=== PATIENT | female | born 1970 | race Caucasian/White ===

== ENCOUNTER 2021-10-03 09:14 | Day surgery (SDC) | payer OTHER ==
[~2021-10-03] VITALS: Ht 170.2 cm; Wt 129.0 kg
[~2021-10-03 09:14] MED LIST: CYCL10 PO
[2021-10-03] MEDS ORDERED: NEBI10 (10:10)
[2021-10-03] MEDS ORDERED: OLME20 (10:11)
--- NOTE | 2021-10-03 10:16 | NUR ---
10/03/21 1016 ALEJO STALLWORTH TETRACAINE PLACED AT 10:11 PLEUGETTE PLACED AT 10:13
== END 2021-10-03 11:56 | disposition home or self-care (01) ==
LOC: ORSCSDS 09:14
PROVIDERS: Ophthalmology
PROC: 08RK3JZ Replacement of Left Lens with Synthetic Substitute, Percutaneous Approach (ICD-10-PCS; principal; 2021-10-03 14:30)
DX: H25.13 Age-related nuclear cataract, bilateral (principal); I10 Essential (primary) hypertension; Z86.73 Personal history of transient ischemic attack (TIA), and cerebral infarction without residual deficits; Z79.899 Other long term (current) drug therapy; E66.01 Morbid (severe) obesity due to excess calories; Z68.41 Body mass index [BMI] 40.0-44.9, adult
CPT/HCPCS: J2001; J3301; J7040; V2632

== ENCOUNTER 2021-10-10 07:06 | Day surgery (SDC) | payer OTHER ==
[~2021-10-10] VITALS: Ht 172.7 cm; Wt 128.8 kg
[~2021-10-10 07:06] MED LIST changes: +NEBI10; +OLME20
--- NOTE | 2021-10-10 07:54 | NUR ---
10/10/21 0754 Lilliana Mercado AT 0745 PLEDGET AT 0783
== END 2021-10-10 09:06 | disposition home or self-care (01) ==
LOC: ORSCSDS 07:06
PROVIDERS: Ophthalmology
PROC: 08RJ3JZ Replacement of Right Lens with Synthetic Substitute, Percutaneous Approach (ICD-10-PCS; principal; 2021-10-10 08:30)
DX: H25.11 Age-related nuclear cataract, right eye (principal); I10 Essential (primary) hypertension; Z86.73 Personal history of transient ischemic attack (TIA), and cerebral infarction without residual deficits; E66.9 Obesity, unspecified; Z68.41 Body mass index [BMI] 40.0-44.9, adult; Z79.899 Other long term (current) drug therapy
CPT/HCPCS: J2001; J2250; J3010; J3301; J7040; V2632